=== PATIENT | female | born 1985 | race Caucasian/White ===

== ENCOUNTER → 2018-07-13 | Outpatient (CLI) | payer BC ==
--- NOTE | 2018-07-13 14:22 | MM ---
Reason for exam: screening (asymptomatic). Baseline mammogram. History: Family history of breast cancer in sister at age 47 and breast cancer in paternal grandmother at age 70. Physical Findings: Nurse did not find any significant physical abnormalities on exam. MG 3D Screening Mammo W/Cad Bilateral CC and MLO view(s) were taken. The breast tissue is heterogeneously dense. This may lower the sensitivity of mammography. No suspicious abnormality on the left. Subtle distortion right upper inner quadrant. These results were verbally communicated with the patient and result sheet given to the patient on 07/13/18. ASSESSMENT: Incomplete: need additional imaging evaluation, BI-RAD 0 RECOMMENDATION: Special view mammogram of the right breast.
--- NOTE | 2018-07-13 14:23 | MM ---
Reason for exam: additional evaluation requested from abnormal screening. History: Family history of breast cancer in sister at age 47 and breast cancer in paternal grandmother at age 70. Physical Findings: Breast exam preformed at baseline screening. MG 3D Work Up W/Cad RT Spot compression CC, spot compression MLO, and LM view(s) were taken of the right breast. The breast tissue is heterogeneously dense. This may lower the sensitivity of mammography. The previously seen abnormality resolves on additional views and appears as fibroglandular tissue compatible with summation. Precautionary right upper inner quadrant ultrasound will be performed. These results were verbally communicated with the patient and result sheet given to the patient on 07/13/18. ASSESSMENT: Incomplete: need additional imaging evaluation, BI-RAD 0 RECOMMENDATION: Ultrasound of the right breast. (upper inner quadrant)
--- NOTE | 2018-07-13 14:24 | USB ---
Reason for exam: additional evaluation requested from abnormal screening. History: Family history of breast cancer in sister at age 47 and breast cancer in paternal grandmother at age 70. US Breast Workup Limited RT Right limited breast ultrasound including focal area of concern, retroareolar and axilla demonstrates a 4 x 2 x 4mm oval, cystic, benign lesion at 4 o'clock. Areas of dense fibroglandular tissue. These results were verbally communicated with the patient and result sheet given to the patient on 07/13/18. ASSESSMENT: Benign, BI-RAD 2 RECOMMENDATION: Return to routine screening mammogram schedule for both breasts.
== END ==
LOC: RADMAMWWP 12:41
PROVIDERS: ATTEND Obstetrics & Gynecology
DX: R92.8 Other abnormal and inconclusive findings on diagnostic imaging of breast (principal)
CPT/HCPCS: 77061; 77063; 77065; 77067

== ENCOUNTER → 2022-03-12 | Outpatient (CLI) | payer OTHER ==
--- NOTE | 2022-03-13 02:55 | MR ---
EXAMINATION TYPE: MR knee LT wo con DATE OF EXAM: 03/12/2022 COMPARISON: None HISTORY: Left inner knee pain, pain behind knee, and locking. History of surgery. Multiplanar multiecho imaging of the left knee performed with no contrast. The anterior and posterior cruciate ligaments are intact. There is knee joint effusion. There is popl iteal large cyst measuring 4.7 x 1.5 cm. The patella is intact. There is increased signal in the ante rior horn of the lateral meniscus extending to the superior surface. The medial meniscus is intact. The collateral ligaments are intact. No evidence of a fracture. Joint spaces are fairly normal. No fo marcela bone destruction. IMPRESSION: Knee joint effusion and large popliteal cyst. No evidence of ligamentous tear. There is tear of the anterior horn of the lateral meniscus on the superior surface.
== END | disposition home or self-care (01) ==
LOC: RADMRIMAIN 16:29
PROVIDERS: ATTEND Orthopaedic Surgery
DX: M23.8X2 Other internal derangements of left knee (principal); M71.22 Synovial cyst of popliteal space [Baker], left knee; M25.462 Effusion, left knee; M25.562 Pain in left knee

== ENCOUNTER → 2023-10-01 | Outpatient (CLI) | payer OTHER ==
--- NOTE | 2023-10-06 12:02 | MM ---
Reason for Exam: Screening (asymptomatic). Last mammogram was performed 5 year(s) and 3 month(s) ago. Patient History: Menarche at age 13. First Full-Term at age 25. Patient has history of breast feeding. Paternal grandmother had breast cancer, age 70. Sister had breast cancer, age 47. Last menstrual period: 09/23/2023 Risk Values: Keren 5 year model risk: 1.0%. NCI Lifetime model risk: 17.3%. Prior Study Comparison: 07/13/2018 Bilateral Screening Mammogram, [facility]. 07/13/2018 Right Diagnostic Mammogram, [facility]. Tissue Density: The breasts are heterogeneously dense, which may obscure small masses. Findings: Analyzed By CAD. Right breast: There is no suspicious group of microcalcifications or new suspicious mass. Left breast: There is no suspicious group of microcalcifications or new suspicious mass. Overall Assessment: Negative, BI-RAD 1 Management: Screening Mammogram of both breasts in [address] [facility] will attempt to contact patient to return for supplemental views and ultrasound if indicated. Patient should continue monthly self-breast exams. A clinical breast exam by your physician is recommended on an annual basis. This exam should not preclude additional follow-up of suspicious palpable abnormalities. Note on Keren scores and lifetime risk: 1. A Keren score greater than 3% is considered moderate risk. If this is the case, consider specialist referral to assess eligibility for a risk reducing agent. 2. If overall lifetime risk for the development of breast cancer is 20% or higher, the patient may qualify for future screening with alternating mammogram and breast MRI. Electronically signed and approved by: Dmitriy Presley DO
== END | disposition home or self-care (01) ==
LOC: RADMAMWWP 11:51
PROVIDERS: ATTEND Obstetrics & Gynecology
DX: Z12.31 Encounter for screening mammogram for malignant neoplasm of breast (principal); Z80.3 Family history of malignant neoplasm of breast
CPT/HCPCS: 77063; 77067